=== PATIENT | male | born 1955 | race Caucasian/White ===

== ENCOUNTER 2017-04-07 00:07 | Emergency (ER) | payer SELFPAY ==
--- NOTE | 2017-04-07 00:18 | PDOC ---
Gen Adult / Medical Screen HPI - General Chief Complaint: Clear for Confinement/DUI Draw Stated Complaint: CLEAR FOR CONFINEMENT Date Seen by Provider: 04/07/17 Time Seen by Provider: 00:14 Source: POSITIVE: Patient, Police Exam Limitations: POSITIVE: No limitations Nurse's Notes Reviewed & Considered: Yes - Indicators Temperature Between 95 and 101 Degrees: Yes Respirations Between 12 and 20: Yes Blood Pressure Between 100-165 (sys) and 60-100 (chow): Yes Pulse Range Between 60-105 (100 for age > 60 years): Yes Severe Pain (Greater than 5/10 Reported): Yes Chest or Abdominal Pain: No Inability to Walk: No Pt Reports Active High Risk Cond. (TB/Hepatitis/HIV/Chemo): No Abnormal Mental Status: No - History of Present Illness Timing: REPORTS: Unknown Duration: Unknown Similar Symptoms Previously: Yes Recent Care Received: REPORTS: Denies ROS - Limitations ROS Limitations: Intoxication (Further review of systems unavailable secondary to the patient's acute intoxication.) Gen Adult/Medical Screen Exam - General Appearance General Appearance: POSITIVE: Alert, Cooperative, No Acute Distress, No Evidence of Trauma - HEENT HEENT: POSITIVE: Head Inspection Nml, Eyes Inspection Nml, Ears Inspection Nml, Nose Inspection Nml, Oral/Dental Inspect. Nml, Pharynx Inspect. Nml, PERRL, EOMI - Pupils Pupil Size: 3 mm: Bilateral - Neck Neck: POSITIVE: Normal Inspection, Thyroid Normal - Respiratory Respiratory: POSITIVE: No Respiratory Distress, Breath Sounds Normal, Chest Non- Tender - Cardiovascular Cardiovascular: POSITIVE: Regular Rate & Rhythm, No Murmur, No Gallop, PMI Normal - Abdomen Abdomen: Soft: (All Quadrants), Normal Bowel Sounds: (All Quadrants), Denies Tenderness: (All Quadrants) - Back Back: POSITIVE: Normal Inspection - Neurological / Psychological Mental Status: POSITIVE: Mood Normal, Other (Intoxicated affect) Orientation: POSITIVE: Cannot Determine - Skin Skin: POSITIVE: Normal Color, Warm, Dry, No Rash - Extremities Extremity: Non-Tender: (All Extremities), Normal ROM: (All Extremities), Normal Inspection: (All Extremities), Pelvis Stable: (All Extremities) Gen Adlt/Medical Scrn Progress - Patient's Progress Status: POSITIVE: Unchanged MDM / ED Course: Patient was evaluated. He is medically stable require no further need of medical intervention at this time. Assessment: Acute alcohol intoxication Plan: Discharge to the custody of the Police Department. - Consult Counseled: POSITIVE: Patient, RE: DX Patient Care Time - Estimated PCT Patient Care Time (In Minutes): 10 Vital Signs - VS Reviewed Vital Signs Reviewed: Yes Discharge Clinical Impression: Alcohol intoxication Discharge Disposition: Discharged to Custody of Law Enforcement Condition: Stable Follow Up With: NONE,NONE [Primary Care Provider] - Date Decision to Transfer to Another Facility: 04/07/17 Time Decision to Transfer to Another Facility: 00:26
[2017-04-07 02:14] VITALS: RESP 18; TEMP 97.7
== END 2017-04-07 00:55 | disposition home or self-care (01) ==
LOC: ER 00:07
DX: F10.129 Alcohol abuse with intoxication, unspecified (principal)
CPT/HCPCS: 99282